=== PATIENT | male | born 1990 | race Two or more races ===

== ENCOUNTER 2023-12-05 22:13 | Emergency (ER) | payer OTHER ==
[~2023-12-05] VITALS: Ht 172.7 cm; Wt 114.0 kg
[2023-12-05 22:18] VITALS: BP 139/94; PULSE 104; RESP 16; TEMP 98.4; O2SAT 97
[2023-12-05] MEDS: IBUPROFEN 800 MG TAB PO ONE (23:26)
[2023-12-05] MEDS ORDERED: AUG875T PO (23:35)
[2023-12-05] MEDS ORDERED: IBUP-1456 PO (23:35)
[2023-12-06] MEDS: TETANUS-DIPTH-ACEL PERTUSSIS 0.5ML SYR Tdap IM ONE (00:49)
== END 2023-12-06 02:03 | disposition home or self-care (01) ==
LOC: ER 22:13
DX: S61.431A Puncture wound without foreign body of right hand, initial encounter (principal); S81.032A Puncture wound without foreign body, left knee, initial encounter; S61.451A Open bite of right hand, initial encounter; S81.052A Open bite, left knee, initial encounter; W54.0XXA Bitten by dog, initial encounter; Y93.01 Activity, walking, marching and hiking; Y92.89 Other specified places as the place of occurrence of the external cause; Y99.8 Other external cause status
CPT/HCPCS: 73130; 73562; 90471; 90715